=== PATIENT | female | born 1995 | race Caucasian/White ===

== ENCOUNTER 2022-05-20 07:32 | Emergency (ER) | payer MEDICAID, OTHER ==
[~2022-05-20] VITALS: Ht 157.5 cm; Wt 136.0 kg
[2022-05-20 07:39] VITALS: BP 138/95
[2022-05-20] MEDS ORDERED: TOPUD PO (08:26)
[2022-05-20] MEDS ORDERED: FLUT9.9S BOTHNSTRLS (08:26)
== END 2022-05-20 08:42 | disposition home or self-care (01) ==
LOC: ER 07:32
DX: B34.9 Viral infection, unspecified (principal); Z20.822 Contact with and (suspected) exposure to COVID-19
CPT/HCPCS: 71045; 87426; 87804; 99284; C9803